=== PATIENT | male | born 1965 | race Caucasian/White ===

== ENCOUNTER 2018-04-19 21:35 | Inpatient (IN) ==
--- NOTE | 2018-04-19 22:27 | Emergency Department Note ---
Disposition Clinical Impression: Chest pain Qualifiers: Chest pain type: precordial pain Qualified Code(s): R07.2 - Precordial pain Disposition: Admitted As Inpatient Condition: Good Referrals: Sea Cuenca MD [Family Provider] - Espinoza Washington MD [Primary Care Provider] - Forms: ED Satisfaction Letter Time of Disposition: 00:14 General Adult HPI - General Chief complaint: ED Chest Pain Stated complaint: Chest Pain Time Seen by Provider: 04/19/18 22:18 Source: patient Mode of arrival: ambulatory Limitations: no limitations - History of Present Illness HPI Narrative: This is a 52-year-old male who comes to emergency department reporting the onset of midsternal chest pain under the superior aspect of his sternum that began about 3 hours prior to arrival. At its worst, he states the pain was much more severe than it is now and he was feeling quite short of breath. He was nauseated and diaphoretic, and vomited once. He states the pain began when he was carrying buckets of linotyper. He has a very strong family history of coronary disease, his older sister, 18 years older than him, having had a heart attack at age 60. Pain Scale: 5 - Related Data Allergies Allergy/AdvReac Type Severity Reaction Status Date / Time lisinopril AdvReac Cough Verified 04/19/18 22:30 All systems ED: reviewed and negative except as stated. Cardiovascular: Reports: chest pain, other (Diaphoresis) Respiratory: Reports: dyspnea Gastrointestinal: Reports: nausea, vomiting Physical Exam - General Limitations: no limitations - Head Head exam: atraumatic, normocephalic, normal inspection - Eye Eye exam: Present: normal appearance, PERRL, EOMI - Chest Chest inspection: Present: normal inspection, symmetric chest wall rise - Respiratory Respiratory exam: Present: normal lung sounds bilaterally. Absent: respiratory distress, wheezes, stridor, accessory muscle use - Cardiovascular Cardiovascular exam: Present: regular rate, normal rhythm, normal heart sounds - Abdominal Exam Abdominal exam: Present: soft, Non-Tender. Absent: tenderness, distention, guarding, rebound, rigidity - Extremities Exam Extremities exam: Present: normal inspection, full ROM. Absent: tenderness, pedal edema - Neurological Exam Neurological exam: Present: alert, oriented X3 - Psychiatric Psychiatric exam: Present: normal affect, normal mood - Skin Skin exam: Present: warm, dry, intact, normal color Course Course Narrative: This is a 52-year-old male with a strong family history of coronary artery disease with a complaint of chest pain. His history of present illness is very concerning and he clearly needs to have a rule out. He was given aspirin, 324 mg Vital Signs Temperature 97.5 F L 04/19/18 21:38 Pulse Rate 72 04/19/18 21:38 Respiratory Rate 16 04/19/18 21:38 Blood Pressure 154/103 04/19/18 21:38 O2 Sat by Pulse Oximetry 99 04/19/18 21:38 Temperature 97.5 F L 04/19/18 22:26 Pulse Rate 56 04/20/18 00:04 Respiratory Rate 16 04/20/18 00:04 Blood Pressure 122/104 04/20/18 00:04 O2 Sat by Pulse Oximetry 97 04/20/18 00:04 Oxygen Delivery Oxygen Delivery Room Air Medical Decision Making - MDM Narrative Medical decision making narrative: This is a 52-year-old male with midsternal chest pain and in history of present illness concerning for possible acute coronary syndrome. His initial EKG was unremarkable, and his initial troponin was barely above the upper limit of normal. I discussed his case with the on-call hospitalist, who accepted him for admission - Lab Data Lab results narrative: CBC showed leukocytosis at 16.2. BMP was unremarkable Troponin was slightly elevated 0.04 Result diagrams: 04/19/18 22:31 04/19/18 22:31 Lab Results 04/19/18 04/19/18 04/19/18 Range/Units 22:31 22:31 22:31 WBC 16.2 H (4.3-11.1) K/mcL RBC 5.50 (4.19-5.50) M/mcL Hgb 16.8 (12.9-16.9) g/dL Hct 50.4 H (37.5-50.1) % MCV 91.6 (83.0-100.0) fL MCH 30.5 (28.0-33.3) pg MCHC 33.3 (31.6-35.5) g/dL RDW 12.7 (11.5-14.5) % Plt Count 314 (140-400) K/mcL MPV 10.1 (9.4-12.4) fL Immature Gran % 0.6 (0-4) % Seg Neutrophils % 80.3 % Lymphocytes % 9.1 % Monocytes % 8.5 % Eosinophils % 0.9 % Basophils % 0.6 % Neutrophils # 13.0 H (1.6-8.9) K/mcL Lymphocytes # 1.5 (0.6-4.6) K/mcL Monocytes # 1.4 H (0.0-1.3) K/mcL Eosinophils # 0.2 (0.0-0.6) K/mcL Basophils # 0.1 (0.0-0.2) K/mcL Toxic Granulation Present A (Not Present) Platelet Estimate Normal (Normal) APTT 28.0 (26.0-36.0) Seconds Sodium 139 (136-145) mEq/L Potassium 4.7 (3.5-5.1) mEq/L Chloride 107 (98-107) mEq/L Carbon Dioxide 25 (23-29) mEq/L BUN 13 (6-20) mg/dL Creatinine 1.01 (0.70-1.30) mg/dL Est GFR ( Amer) > 60 (> 60) Est GFR (Non-Af Amer) > 60 (> 60) BUN/Creatinine Ratio 13 (6-26) Glucose 103 (70-105) mg/dL Calculated Osmolality 288 (280-300) Calcium 10.1 (8.6-10.3) mg/dL Troponin I 0.04 H* (< 0.04) ng/mL - Radiology Data Radiology results reviewed: Yes I reviewed the patient's radiology results. Chest x-ray showed no acute process - EKG Data EKG #1 EKG attestation: Yes I reviewed and interpreted this EKG. EKG results narrative: ECG showed sinus rhythm, 79 bpm,, normal intervals, normal axis, slight ST elevation in lead V2 but no other ST abnormalities, T-wave inversion in lead 3 Critical Care Time Critical Care Time: No
[2018-04-19 22:46] LABS: Basophils # 0.1 K/mcL (0.0-0.2); Basophils % 0.6 %; Eosinophils # 0.2 K/mcL (0.0-0.6); Eosinophils % 0.9 %; Hematocrit 50.4 % (37.5-50.1); Hemoglobin 16.8 g/dL (12.9-16.9); Immature Granulocytes % 0.6 % (0-4); Lymphocytes # 1.5 K/mcL (0.6-4.6); Lymphocytes % 9.1 %; Mean Corpuscular HGB Conc 33.3 g/dL (31.6-35.5); Mean Corpuscular Hemoglobin 30.5 pg (28.0-33.3); Mean Corpuscular Volume 91.6 fL (83.0-100.0); Mean Platelet Volume 10.1 fL (9.4-12.4); Monocytes # 1.4 K/mcL (0.0-1.3); Monocytes % 8.5 %; Platelet Count 314 K/mcL (140-400); Red Cell Distribution Width 12.7 % (11.5-14.5); Segmented Neutrophils % 80.3 %
[2018-04-19 23:01] LABS: BUN/Creatinine Ratio 13 (6-26); Blood Urea Nitrogen 13 mg/dL (6-20); Calcium 10.1 mg/dL (8.6-10.3); Carbon Dioxide 25 mEq/L (23-29); Chloride 107 mEq/L (98-107); Glucose 103 mg/dL (70-105); Osmolality,Calculated 288 (280-300); Potassium 4.7 mEq/L (3.5-5.1); Sodium 139 mEq/L (136-145); eGFR For Non-African Americans > 60 (> 60)
[2018-04-19 23:02] LABS: Platelet Estimate Normal (Normal); Toxic Granulation Present (Not Present)
[2018-04-19 23:05] LABS: Troponin I 0.04 ng/mL (< 0.04)
[2018-04-19] MEDS ORDERED: Aspirin Enteric Coated 325 MG Tablet PO ONE (23:45)
[2018-04-20] MEDS ORDERED: Acetaminophen 325 MG TABLET PO PRN (05:31)
[2018-04-20] MEDS ORDERED: traMADol 50 MG TABLET PO PRN (05:31)
[2018-04-20] MEDS ORDERED: Naloxone 0.4 MG/ML INJ IVP PRN (05:31)
[2018-04-20] MEDS ORDERED: Nitroglycerin 0.4 MG TAB.SUBL SL PRN (05:31)
--- NOTE | 2018-04-20 05:45 | Internal Med History&Physical ---
Date of Encounter: 04/20/18 Time of Encounter: 04:30 Internal Medicine - H&P: HPI Chief complaint: chest pain Admitted From: Emergency Dept Plans for Post Hospital Care: Home History of present illness: Mr. Lange is a 52 year old male who presents to the ER tonight after experiencing substernal chest pain and pressure associated with diaphoresis, nausea, and shortness of breath. He was sealing his driveway when he noticed the chest pain. The chest pain was severe, heavy, and radiated to his left arm. He stopped sealing his driveway and tried to sit down and rest, hoping the pain would go away. However, after 2 hours the pain would not go away. He therefore came to ER for evaluation. By the time he arrived to the ER, he was chest pain-free. He had no further diaphoresis or dyspnea. Workup in ER was negative except for a slightly elevated troponin. He was therefore admitted to hospitalist service. Upon my assessment of the patient, he remains chest pain-free and has no further anginal type symptoms. He reiterates the above history. He has had a few prior episodes of chest pain which were minimal and self-limited. The chest pain he had yesterday/last night was severe and intense. He thought and felt as though he was having a heart attack. Patient reports having a stress test in October of this year at [facility] in [place]. The stress test was reportedly negative. I am trying to obtain results of that stress test. He has no cardiac risk factors other than his family history. However, his family history is rather concerning. His dad of a heart attack at age of 45. He has a sister who has heart disease and a nephew who has coronary artery disease as well. Given that he has had recurrent chest pain with a strong family history of premature coronary artery disease and recent negative stress test, I recommend cardiology consultation and favor left heart catheterization. Patient voiced understanding and agreement with my opinion. Past Med Surg Social Fam HX - Past Medical History Attestation: Yes The following information was validated with the patient. Source: patient, other (ER notes) Medical history: no medical history Psychiatric history: no psych history - Past Surgical History Surgical History: no surgical history - Social History Smoking Status: Never smoker Smokeless Tobacco Status: No Alcohol use: none Drug use: none Current living situation: Home, With Family Activity Level: Independent ambulation Recent Out of Country Travel Within the Last 8 Weeks: No - Family History Father Living Status: Hx Family Cardiac Disorders: Yes ([place]) Sister Living Status: Hx Family Cardiac Disorders: Yes ([place]) - Additional Family History Additional family history: FH Premature CAD -- father of [place] 45 yo; sister w CAD; nephew w CAD Internal Medicine - H&P: Meds No Known Home Drugs 04/20/18 [History] 3 Allergy/AdvReac Type Severity Reaction Status Date / Time lisinopril AdvReac Cough Verified 04/19/18 22:30 - Constitutional Constitutional: no chills, no fever(s) - EENT Eyes: no blurry vision, no change in vision Ears: no ear pain, no tinnitus Nose, mouth and throat: no nasal congestion, no sinus pressure, no sore throat - Cardiovascular Cardiovascular ROS IM: chest pain, diaphoresis, dyspnea, no edema, no orthopnea , no syncope - Respiratory Respiratory: no cough, no hemoptysis, no chest congestion, no excessive phlegm production, no change in phlegm color - Gastrointestinal Gastrointestinal: no abdominal pain, no diarrhea, no dyspepsia, no heartburn, no hematemesis, no hematochezia, no melena, no nausea, no vomiting - Genitourinary Genitourinary ROS male: no dysuria, no flank pain, no hematuria - Musculoskeletal Musculoskeletal ROS IM: no arthralgias, no back pain - Integumentary Integumentary IM: no rash, no jaundice - Neurological Neurological ROS: no dizziness, no focal weakness, no frequent falls, no headache(s) - Psychiatric Psychiatric: no anxiety, no depression - Endocrine Endocrine IM: no polydipsia, no polyuria - Hematologic/Lymphatic Hematologic/Lymphatic: no easy bruising, no lymphadenopathy - Allergic/Immunologic Allergic/Immunologic: no wheezing, no GI upset with certain foods - Constitutional Vitals: Temp Pulse Resp BP Pulse Ox 97.4 F L 55 16 138/98 100 04/20/18 00:39 04/20/18 00:46 04/20/18 00:46 04/20/18 00:46 04/20/18 00:46 General appearance: Present: cooperative, A&O X 3, pleasant, answers questions appropriately Exam: see below - Head Head exam: Present: normal inspection - Eye Eye exam: Present: EOMI, PERRL. Absent: scleral icterus Pupils: Present: normal accommodation - ENT ENT exam: Present: mucous membranes dry, normal exam, normal oropharynx - Neck Neck exam general surgery: Present: full ROM, supple. Absent: tenderness, nuchal rigidity, thyromegaly - Respiratory Respiratory exam: Present: CTAB. Absent: chest wall tenderness, rales, rhonchi , wheezes - Cardiovascular Cardiovascular exam: Present: RRR, +S1, +S2. Absent: diastolic murmur, systolic murmur - GI/Abdominal GI/Abdominal exam: Present: normal bowel sounds, soft. Absent: hepatomegaly, mass, splenomegaly, tenderness - Extremities Exam Extremities exam: Present: normal capillary refill, warm, radial pulses palpable and symmetrical. Absent: calf tenderness, joint swelling, pedal edema , tenderness - Back Exam Back exam: Absent: CVA tenderness (L), CVA tenderness (R) - Neurological Exam Neurological exam: Present: alert, CN II-XII intact, oriented X3, no focal deficits - Psychiatric Psychiatric exam: Present: normal affect, normal mood - Skin Skin exam: Present: dry, intact, warm Internal Med - H&P Results - Labs CBC & Chem 7: 04/19/18 22:31 04/19/18 22:31 - EKG Data -: EKG Interpreted by Myself - EKG Data Prior EKG available for review: no EKG comments: 04/20/18 05:49 NSR; no acute changes - Diagnostic Studies Chest x-ray Status: image reviewed by me (negative) - Assessment and plan (1) Chest pain Current Visit: Yes Status: Acute Assessment and plan: 1. Will trend troponins and EKG's. 2. Will order ECHO. 3. Will order lipid profile. 4. I requested Stress Test results/records from [facility]. 5. Consult cardiology -- patient with strong family history of premature CAD. I recommend [facility] given recurrent chest lucero, reported negative stress test, and +FH. Qualifiers: Chest pain type: chest pain due to myocardial ischemia Ischemic chest pain type: stable angina pectoris Qualified Code(s): I20.8 - Other forms of angina pectoris (2) DVT prophylaxis Current Visit: Yes Status: Acute Assessment and plan: 1. Heparin SQ. - Time Spent With Patient Total time spent is greater than 50% in coordination of care (as documented) at patient's floor/unit and/or counseling patient:
[2018-04-20] MEDS ORDERED: *HR* Heparin 5,000 UNIT/ML VIAL SQ SCH (06:00)
[2018-04-20 07:40] LABS: Basophils # 0.1 K/mcL (0.0-0.2); Basophils % 0.8 %; Eosinophils # 0.2 K/mcL (0.0-0.6); Eosinophils % 2.5 %; Hematocrit 47.2 % (37.5-50.1); Hemoglobin 15.6 g/dL (12.9-16.9); Immature Granulocytes % 0.3 % (0-4); Lymphocytes # 2.5 K/mcL (0.6-4.6); Lymphocytes % 29.1 %; Mean Corpuscular HGB Conc 33.1 g/dL (31.6-35.5); Mean Corpuscular Hemoglobin 30.4 pg (28.0-33.3); Mean Corpuscular Volume 91.8 fL (83.0-100.0); Mean Platelet Volume 9.8 fL (9.4-12.4); Monocytes % 11.1 %; Neutrophils # 4.9 K/mcL (1.6-8.9); Platelet Count 293 K/mcL (140-400); Red Blood Count 5.14 M/mcL (4.19-5.50); Red Cell Distribution Width 12.9 % (11.5-14.5); Segmented Neutrophils % 56.2 %
[2018-04-20 07:48] LABS: Alanine Aminotransferase 28 Units/L (7-52); Albumin 4.3 g/dL (3.5-5.7); Albumin/Globulin Ratio 2.4 (1.1-2.2); Alkaline Phosphatase 82 Units/L (34-104); Aspartate Amino Transferase 22 Units/L (13-39); BUN/Creatinine Ratio 13 (6-26); Bilirubin,Total 1.7 mg/dL (0.3-1.0); Blood Urea Nitrogen 11 mg/dL (6-20); Calcium 9.4 mg/dL (8.6-10.3); Carbon Dioxide 26 mEq/L (23-29); Chloride 107 mEq/L (98-107); Chol/HDL Ratio 5.4 (0-4.9); Cholesterol 204 mg/dL (< 200); Globulin 1.8 g/dL (2.4-3.5); Glucose 93 mg/dL (70-105); HDL Cholesterol 38 mg/dL (40-59); LDL Cholesterol,Calculated 150 mg/dL (0-99); Magnesium 2.1 mg/dL (1.6-2.6); Osmolality,Calculated 287 (280-300); Potassium 3.8 mEq/L (3.5-5.1); Sodium 139 mEq/L (136-145); Total Protein 6.1 g/dL (6.4-8.9); Triglycerides 80 mg/dL (< 150); eGFR For Non-African Americans > 60 (> 60)
[2018-04-20 07:54] LABS: INR 1.1; Prothrombin Time 11.9 Seconds (9.4-12.1)
[2018-04-20 07:56] LABS: Activated Partial Thrombo Time 28.9 Seconds (26.0-36.0)
[2018-04-20] MEDS: Aspirin 81 MG TAB.CHEW PO SCH (07:57)
[2018-04-20] MEDS ORDERED: *HR* Heparin 5,000 UNIT/ML VIAL IVP ONE (09:25)
[2018-04-20] MEDS ORDERED: *HR* Heparin 5,000 UNIT/ML VIAL IVP PRN ×2 (09:25)
[2018-04-20] MEDS ORDERED: Heparin 25,000 UNIT/500 ML D5W 25,000 UNIT/500 ML BAG IVC SCH (09:30)
--- NOTE | 2018-04-20 09:38 | Cardiology Consult Note ---
Date of Encounter: 04/20/18 Time of Encounter: 09:00 Assessment and Plan (1) NSTEMI (non-ST elevated myocardial infarction) Current Visit: Yes Status: Acute Troponin elevation up to 1.02. EKG with no acute ST/T wave changes. C/o intermittent typical chest pain symptoms. Significant family history of CAD. Reports normal stress test 10/2017. [facility] R/B/A reviewed. He agrees to proceed. Check TTE. Start heparin gtt. Asa, statin, and bb. Discussion w patient/family: The assessment and plan as outlined above was discussed with the patient and/or family members who expressed understanding and agreement. All questions were answered. Thank you for involving us in the care of your patient. Please call with any questions. History of Present Illness Consult date: 04/20/18 Requesting physician: Asher Watkins Consult reason: chest pain, NSTEMI Chief complaint: chest pain with exertion History of present illness: Mr. Lange is a 52 year old male with no significant past medical history presents with the c/o intermittent chest pain and SOB with exertion. Reports chest pain increased last night and was severe. His pain lasted 45 min and was relieved after taking an asa. He is currently chest pain free. Denies prior cardiac history. Reports stress test completed for chest pain in October at an out -side hospital was negative. He has a significant family history of CAD including father with [place] at 45 years old and sister with [place] in her 50's. Past Med Surg Social Fam HX - Past Medical History Medical history: no medical history Psychiatric history: no psych history - Past Surgical History Surgical History: no surgical history - Social History Smoking Status: Never smoker Smokeless Tobacco Status: No Alcohol use: none Drug use: none - Family History Father Living Status: Hx Family Cardiac Disorders: Yes ([place]) Sister Living Status: Hx Family Cardiac Disorders: Yes ([place]) Medications and Allergies No Known Home Drugs 04/20/18 [History] 3 Allergy/AdvReac Type Severity Reaction Status Date / Time lisinopril AdvReac Cough Verified 04/19/18 22:30 All Systems Review: The remainder of the systems were reviewed and are negative Physical Examination Vital Signs, Last 4 Hours Temp Pulse Resp BP Pulse Ox 04/20/18 07:55 96 04/20/18 07:43 98.1 F 57 17 111/74 96 General: Conversant, No Apparent Distress HEENT: Atraumatic, Normocephaly, Mucus Membranes Moist Neck: No JVD, Normal carotid pulses Cardiac: Reg Rate and Rhythm, Normal S1 and S2, No Murmur Lungs: Normal Breath Sounds, No Wheeze, Rales, Rhonchi Neuro: Alert and responsive, No focal deficits noted Abdomen: Soft, Non-Tender Skin: No rashes noted on visualized skin Musculoskeletal: No Chest Wall Tenderness Extremities: No Clubbing, No Cyanosis, No Edema, Normal Pulses Results 04/20/18 06:42 04/20/18 06:42 Lab Results 04/20/18 04/20/18 04/20/18 06:42 06:42 06:42 WBC 8.7 Hgb 15.6 Hct 47.2 Plt Count 293 INR 1.1 APTT 28.9 Sodium 139 Potassium 3.8 Chloride 107 Carbon Dioxide 26 BUN 11 Creatinine 0.83 Glucose 93 Calcium 9.4 Magnesium 2.1 Total Bilirubin 1.7 H AST 22 ALT 28 Alkaline Phosphatase 82 Troponin I 04/20/18 06:42 WBC Hgb Hct Plt Count INR APTT Sodium Potassium Chloride Carbon Dioxide BUN Creatinine Glucose Calcium Magnesium Total Bilirubin AST ALT Alkaline Phosphatase Troponin I 1.02 H* - EKG Interpretation EKG results cardiology: personally reviewed (SR with no acute ST changes.) Consult Discharge Plan - Plan Referrals: Espinoza Washington MD [Primary Care Provider] -
[2018-04-20 10:22] LABS: Hematocrit 47.3 % (37.5-50.1); Hemoglobin 15.7 g/dL (12.9-16.9); Mean Corpuscular HGB Conc 33.2 g/dL (31.6-35.5); Mean Corpuscular Hemoglobin 30.5 pg (28.0-33.3); Mean Corpuscular Volume 91.8 fL (83.0-100.0); Mean Platelet Volume 9.5 fL (9.4-12.4); Platelet Count 309 K/mcL (140-400); Red Blood Count 5.15 M/mcL (4.19-5.50); Red Cell Distribution Width 12.9 % (11.5-14.5)
[2018-04-20 10:29] LABS: INR 1.1
[2018-04-20] MEDS ORDERED: 0.9 % Sodium Chloride 500 ML ONE (10:42)
[2018-04-20 10:45] LABS: Heparin anti-factor XA UFH 0.06 IU/mL (0.30-0.70)
[2018-04-20] MEDS ORDERED: Verapamil 5 MG/2 ML VIAL ONE (13:47)
[2018-04-20] MEDS ORDERED: ISOVUE-370 200 ML INFUS..BTL IV ONE ×2 (13:47→15:11)
[2018-04-20] MEDS ORDERED: *HR* Heparin 10,000 UNIT/10 ML VIAL ONE (13:47)
[2018-04-20] MEDS ORDERED: Heparin 1,000 UNITS/500 mL 500 ML ONE (13:47)
[2018-04-20] MEDS ORDERED: Nitroglycerin 1,000 MCG/10 ML VIAL IV ONE (13:48)
[2018-04-20] MEDS ORDERED: 0.9 % Sodium Chloride 1,000 ML ONE ×2 (13:48→14:21)
[2018-04-20] MEDS ORDERED: *HR* FentaNYL (PF) 100 MCG/2 ML VIAL ONE (14:26)
[2018-04-20] MEDS ORDERED: *HR* Midazolam HCl 2 MG/2 ML VIAL ONE ×2 (14:26→14:37)
--- NOTE | 2018-04-20 14:41 | Pre-Sedation Evaluation ---
Pre-sedation evaluation - Pre-sedation checklist Date of procedure: 04/20/18 Procedure: heart cath Recent Vitals: Last Vital Signs Temp 98.5 F 04/20/18 12:00 Pulse 54 04/20/18 12:00 Resp 19 04/20/18 12:00 BP 117/77 04/20/18 12:00 Pulse Ox 97 04/20/18 12:00 H&P (including ROS) documented in medical record: Yes Previous reaction to sedatives/anesthetics: No Dietary Status: NPO after Midnight Dentition: No loose teeth or bridges, full dentition ASA Classification *see protocol: CLASS II-Mild systemic disease Plan of Care: Pt appropriate candidate for procedure/moderate/conscious sedation , Risks/benefits of procedure/sedation discussed w/ patient/family Cardiac Registry (Cardio Only) - Functional Capacity Functional Capacity: >=4 METS with symptoms - Clincal Frailty Scale Clinical Frailty Scale: Managing Well
--- NOTE | 2018-04-20 14:55 | Event Note ---
Date of Encounter: 04/20/18 Time of Encounter: 14:50 Patient was seen earlier by nocturnal. He was seen and examined at bedside by myself as well. In summary this is a 52-year-old male with no significant past medical history presented to [facility] with complaints of chest pain. Chest pain resolved prior to arrival to ED. EKG without acute ST changes. Serial troponin 0.04, 1.02, 1.17. He was evaluated by cardiology who recommended C area and heparin drip started. TTE pending
[2018-04-20] MEDS ORDERED: Tirofiban 12.5 MG/250ML 12.5 MG/250 ML BAG ONE (15:06)
[2018-04-20] MEDS ORDERED: *HR* Ticagrelor 90 MG TABLET ONE (15:17)
--- NOTE | 2018-04-20 15:38 | Invasive Diagnostic Lab Proc ---
Name: Rob Lange Date of Study: 04/20/2018 Date: 1965 Ht: 70.0in Medical Record#: [id number] Age: 52 Wt: 187.83lb Gender: Male BSA: 2.03 Order #: [id number] BMI: 26.95 Physicians Procedure Physician: Lul Gomez MD, [facility] Referring MD: Referring MD: Staff Name Position Time In Chhaya Hurtado RT (R) Monitor 02:32 PM Constantin Higgins RN Care Management Specialist 02:32 PM Sherly Eli RT Scrub 02:32 PM Indications Indication Non-Stemi Procedures Performed Procedure L HRT ARTERY/VENTRICLE ANGIO PRQ CARD RACHELLE STENT W/ANGIO 1 VSL Pre-Procedure Checklist Informed consent is complete signed and on chart. H&P is on chart. ID band is on and ID verified with patient. Patient NPO for procedure The procedure was described for the patient and questions were answered. ECG is on chart. Plan of Care Patient will tolerate the procedure without complications. Adequate level of comfort will be maintained. Hemodynamics will remain stable Patient will recover from procedure without complications. Respiratory function will be maintained. Cardiac rhythm will remain stable. Patient temperature will be maintained. Patient and/or family have verbalized understanding of the procedure. Patient Education Chief Complaint/Reason for Test: Cardiac Cath Developmental Category: Adult (18-64 years) Developmentally Appropriate for Age: Yes Learning Barriers: None Education Needs: Procedure Education Method: Verbal Information Taught: Cardiac Cath Educational Evaluation: Able to repeat information Intravenous Access Time IV Size Location DC'd Fluid/Drip Rate Units RN 02:28 PM Started with 20g 1 1/4" Rt Antecubital 0.9NaCl 25 ml/hr Constantin Higgins RN Allergies lisinopril Vital Signs Time BP (mmHg) HR (bpm) O2 Sat. RR (bpm) LOC / % 5 = Fully awake and oriented or at pre-proc level 02:33 PM / % 5 = Fully awake and oriented or at pre-proc level 02:33 PM / % 4 = Oriented but drowsy 02:48 PM / % 4 = Oriented but drowsy 03:03 PM / % 4 = Oriented but drowsy 02:31 PM 132 / 68 52 100 % 7 02:36 PM 114 / 73 55 98 % 13 02:41 PM 116 / 74 54 97 % 11 02:46 PM 111 / 72 51 98 % 12 02:51 PM 109 / 70 52 98 % 12 02:56 PM 103 / 69 57 97 % 15 03:01 PM 104 / 63 65 96 % 13 03:06 PM 100 / 65 57 97 % 12 03:11 PM 117 / 76 55 97 % 10 03:16 PM 119 / 72 53 97 % 13 03:21 PM 130 / 74 % Procedural Medications Time Medication Dose Units Method Given By 02:33 PM Oxygen 2 L/min nasal cannula Constantin Higgins RN 02:33 PM Versed 2 mg Intravenous Constantin Higgins RN 02:33 PM Fentanyl 50 mcg Intravenous Constantin Higgins RN 02:55 PM Lidocaine 2% 0.5 ml Subcutaneous Lul Gomez MD, FACC 02:56 PM Heparin 2000 units Nitroglycerin 200 mcg Verapamil 2.5 mg Intraarterial Lul Gomez MD, FACC 03:03 PM Versed 1 mg Intravenous Constantin Higgins RN 03:04 PM Fentanyl 25 mcg Intravenous Constantin Higgins RN 03:10 PM Aggrastat Bolus: 42 ml Intravenous Constantin Higgins RN 03:10 PM Aggrastat 12.5mg/250ml 15 ml Intravenous Constantin Higgins RN 03:17 PM Brilinta 180 mg Orally Constantin Higgins RN ASA Classification: CLASS II- Mild systemic disease (i.e. well-controlled diabetes, hypertension, asthma, cigarette smoking) Nilsa Score Preprocedure Postprocedure Activity 2- Moves 4 extremities sustained head lift Activity 2- Moves 4 extremities sustained head lift Circulation 2- SBP +/= 20 points of pre-anesthetic level Circulation 2- SBP +/= 20 points of pre-anesthetic level Consciousness 2- Awake and alert oriented x 3 Consciousness 2- Awake and alert oriented x 3 O2 Saturation 2- Able to maintain O2 satruation of 92% on room air O2 Saturation 2- Able to maintain O2 satruation of 92% on room air Respiratory 2- Able to deep breathe and cough well Respiratory 2- Able to deep breathe and cough well Total Score 10 Total Score 10 Contrast Agent: Isovue Diagnostic Contrast: 100 ml Total Contrast: 100 ml Fluoro Dose: 27 mGy Activated Clotting Time Time Seconds to Clot 03:12 PM 306 Procedure Log Time Note Enter By 02:28 PM Pt arrived to technical laboratory asst 1 at 14:28 twilson 02:28 PM Patient charges- Angio tray pack, Navilyst 3mm J, Pulse Oximetry and ACIST tubing and transducer twilson : PM Physician arrived 14: twilson : PM Meet and greet completed : PM Sign in performed according to hospital policy. twilson : PM Procedure start 14: twilson : PM CathStat : PM [ Start or Stop Vital ] 02:30 PM Vitals capture started with the following parameters, Patient=Adult, Interval=5 min, Initial Crazonhn=379 mmHg, Deflation Rate=3 mmHg, Cuff placed on Right Arm 02: PM HR=52 bpm, FUAS=876/68 mmhg, GrS4=492.0 %, Resp=7 B/min 02:31 PM Recorded ECG: HR=54 Condition=Condition 1 02:32 PM Chhaya Hurtado RT (R) Position: Monitor Time in: : tw:32 PM Constantin Higgins RN Position: Care Management Specialist Time in: : twilson :32 PM Sherly Eli RT Position: Scrub Time in: : twilson :32 PM Patient charges- Angio tray pack, Navilyst 3mm J, Pulse Oximetry and ACIST tubing and transducer twilson : PM Case Delayed no twilson : PM Hair removed from procedure site in procedure lab using clippers. Right wrist prepped with Chloraprep by Jia Lomas RT (R), then patient was draped. Skin intact. tw: PM Hair removed from procedure site in procedure lab using clippers. Right groin prepped with Chloraprep by Jia Lomas RT (R), then patient was draped. Skin intact. : PM Time: 14:33 Oxygen on at 2 L/min per nasal cannula by Constantin Higgins RN : PM Time: 14:33 Versed 2 mg Intravenous Given by Constantin Higgins RN PM Time: 14:33 Fentanyl 50 mcg Intravenous Given by Constantin Higgins RN : PM Time: 14:33 Patient comfortable and pain free: Yes : PM Time: 14:33LOC: 5 = Fully awake and oriented or at pre-proc level twilson 02:36 PM HR=55 bpm, MIBX=906/73 mmhg, SpO2=98.0 %, Resp=13 B/min 02:41 PM HR=54 bpm, VJNZ=437/74 mmhg, SpO2=97.0 %, Resp=11 B/min 02:44 PM ASA Class CLASS II- Mild systemic disease (i.e. well-controlled diabetes, hypertension, asthma, cigarette smoking) twilson 02:46 PM HR=51 bpm, DNWW=221/72 mmhg, SpO2=98.0 %, Resp=12 B/min 02:48 PM Time: 14:33 Patient comfortable and pain free: Yes twilson 02:48 PM Time: 14:33LOC: 4 = Oriented but drowsy twilson 02:51 PM HR=52 bpm, AWWJ=014/70 mmhg, SpO2=98.0 %, Resp=12 B/min 02:54 PM Time out performed according to hospital policy tw:56 PM Time: 14:55 0.5 ml Lidocaine 2% to right radial Subcutaneous Given by Lul Gomez MD, [facility] twilson 02:56 PM Access obtained by percutaneous puncture. 5Fr 10cm Terumo Glidesheath sheath placed in right Radial artery. [id number] twilson 02:56 PM Time: 14:56 Patient given 2,000 units Heparin, 200 mcg Nitroglycerin, and 2.5 mg Verapamil Intraarterial by Lul Gomez MD, [facility]. This is given to reduce risk of vessel spasm and thrombosis. tw 02:56 PM HR=57 bpm, KLBC=078/69 mmhg, SpO2=97.0 %, Resp=15 B/min 02:58 PM 5Fr TIG catheter inserted over the wire [facility] tw:58 PM Wire removed tw 02:59 PM Catheter selectively placed in left ventricle twilson 02:59 PM Recorded Pressure: LV, HR=63, Condition=Condition 1 (Left Ventricle) LV 94/8/9 02:59 PM Bolus angiogram of left Ventricle complete: 10 ml/sec for a total of 20 mls twilson 03:00 PM Recorded Pressure: LV, Ao, HR=60, Condition=Condition 1 (Left Ventricle) LV 104/1/8, (Aorta) Ao 96/68/81 03:01 PM RCA angiography performed in multiple views. twilson 03:01 PM Recorded Pressure: Ao, HR=59, Condition=Condition 1 (Aorta) Ao 99/75/87 03:01 PM HR=65 bpm, ZJCN=161/63 mmhg, SpO2=96.0 %, Resp=13 B/min 03:01 PM Wire reinserted. twilson 03:02 PM Catheter removed twilson 03:02 PM Lesion found in Mid RCA. Pre Stenosis: 50 Pre JA Flow: twilson 03:02 PM Lesion found in Distal RCA. Pre Stenosis: 40 Pre JA Flow: twilson 03:02 PM Right Coronary, Right Posterior Descending Arteries with Right Posterolateral and Acute Marginal branches with 50 % stenosis. If graft is supplying this area, 0 % stenosis twilson 03:03 PM 6Fr RBL 3.5 Convey guide catheter was used to cannulate the PCI vessel successfully. reused? No twilson 03:03 PM Time: 14:48LOC: 4 = Oriented but drowsy twilson 03:03 PM Time: 14:48 Patient comfortable and pain free: Yes twilson 03:03 PM Wire removed twilson 03:04 PM Time: 15:03 Versed 1 mg Intravenous [facility] 03:04 PM Time: 15:04 Fentanyl 25 mcg Intravenous Given by Constantin Higgins RN twilson 03:04 PM LCA angiography performed in multiple views. twilson 03:04 PM Recorded Pressure: Ao, HR=53, Condition=Condition 1 (Aorta) Ao 99/65/80 03:05 PM Recorded Pressure: Ao, HR=57, Condition=Condition 1 (Aorta) Ao 105/68/85 03:05 PM Recorded Pressure: Ao, HR=59, Condition=Condition 1 (Aorta) Ao 99/64/81 03:06 PM HR=57 bpm, BEGF=217/65 mmhg, SpO2=97.0 %, Resp=12 B/min 03:06 PM Lesion found in Mid LAD. Pre Stenosis: 95 Pre JA Flow: 3: Complete and Brisk Flow/Perfusion twilson 03:07 PM Drawing an ACT twilson 03:07 PM Coronary Dominance: right twilson 03:07 PM Mid/Distal Left Anterior Descending Coronary Artery and diagonal branches with 95% stenosis. If graft is supplying this area, 0 % stenosis twilson 03:07 PM Inflation device was opened. twilson 03:08 PM PCI lesion in Mid LAD. twilson 03:08 PM PCI Status Urgent twilson 03:08 PM .014 Jewell 190cm guide wire across target lesion- successful. reused? No twilson 03:10 PM 2.5 mm x 12 mm Emerge Monorail balloon across target lesion- successful. reused? No twilson 03:10 PM Time: 15:10 Aggrastat Bolus: 42 ml Intravenous Given by Constantin Higgins RN Simmons pump twilson 03:10 PM Balloon inflated @ 14 louise for 12 seconds twilson 03:11 PM Time: 15:10 Aggrastat 12.5mg/250ml 15 ml Intravenous Given by Constantin Higgins RN Simmons pump twilson 03:11 PM Recorded Pressure: Ao, HR=54, Condition=Condition 1 (Aorta) Ao 129/79/99 03:11 PM HR=55 bpm, SCBJ=795/76 mmhg, SpO2=97.0 %, Resp=10 B/min 03:12 PM At 15:12 the ACT was 306 seconds. twilson 03:13 PM 3.5mm x 16mm Promus Premier Rx drug-eluting stent across target lesion- successful Lot #[id number] twilson 03:13 PM Stent deployed @ 11 louise for 10 seconds twilson 03:13 PM Stent balloon reinflated @ 11 louise for 10 seconds twilson 03:15 PM Guide wire removed intact. twilson 03:15 PM Stent delivery system removed intact. twilson 03:15 PM Wire reinserted. twilson 03:15 PM Wire and catheter removed, intact. twilson 03:16 PM Procedure completed at 15:16 04/20/2018 twilson 03:16 PM Lesion found in 1st Diagonal. Pre Stenosis: 80 Pre JA Flow: twilson 03:16 PM HR=53 bpm, ICIW=538/72 mmhg, SpO2=97.0 %, Resp=13 B/min 03:17 PM Time: 15:17 Brilinta 180 mg Orally Given by Constantin Higgins RN twilson 03:18 PM Did you address JA flow and Dominance? Yes twilson 03:18 PM Sign out completed: Radiation Dose 215.62 mGy, 27.0467 Gy/cm2 Fluoro Time: 5.3 Isovue 370 - 200ml contrast 100 ml given by Lul Gomez MD, FACC. Complications: NoneCardiac Rehab Consult needed: YesConfirmed administered medications: Yes twilson 03:19 PM Time: 15:03LOC: 4 = Oriented but drowsy twilson 03:19 PM Time: 15:03 Patient comfortable and pain free: Yes twilson 03:19 PM Isovue 370 - 200ml,1 Bottle(s) used. twilson 03:19 PM Arterial sheath pulled, Vasc Band closure device used and was Successful S/N. twilson 03:19 PM 13 ml air in Vasc Band. twilson 03:19 PM Estimated Blood Loss: minimal twilson 03:19 PM Post ECG NSR twilson 03:19 PM Post Blood Pressure 119/72 twilson 03:20 PM 15:20 Post Pulses Bilateral DP & PT 2+ twilson 03:20 PM 15:20 Post Pulses Bilateral radial 2+ twilson 03:20 PM Information taught Cardiac Cath, PCI, and Vasc Band twilson 03:21 PM Education needs Procedure, Plan of Care, and Responsibilities of Patient in Care twilson 03:21 PM Learning barriers :None twilson 03:21 PM Education Methods Verbal twilson 03:21 PM Education evaluation Able to repeat information twilson 03:21 PM Site status No bleeding/hematoma - Rt Wrist as reported by Sherly Eli RT at 15:21 twilson 03:21 PM Family placed in consult room. twilson 03:21 PM KVWL=003/74 mmhg 03:23 PM Plavix, Effient or Brilinta given Yes twilson 03:27 PM Report given to Kathleen TIWARI Pt taken to 3B Room #32. 15:27 twilson 03:27 PM Delay to floor No twilson 03:27 PM Patient out of room: 15:27 twilson Complications Complication None Hemodynamics Pressures Site Systolic/A Wave Diastolic/V Wave Mean LV 94 8 9 LV 104 1 8 AO 96 68 81 AO 99 75 87 AO 99 65 80 AO 105 68 85 AO 99 64 81 AO 129 79 99 Post Procedure Information Blood Pressure: 119/72 mmHg Rhythm: NSR Post procedural instructions were given Closure Device Time Device Success/Fail 04/20/2018 3:15:00 PM Mechanical Compression Successful Site Checks Time Location Status Staff Sheath In? Note 03:21 PM Rt Wrist No bleeding/hematoma Sherly Eli RT Pulses Time Site Pre-Procedure Post-Procedure Note 04/20/2018 2:28:00 PM Bilateral DP & PT 2+ 04/20/2018 2:28:00 PM Bilateral radial 2+ 3:20:00 PM Bilateral DP & PT 2+ 3:20:00 PM Bilateral radial 2+ Updated by ChhayaRT Denise (R) on 04/20/2018 3:29:47 PM electronically signed on 04/20/2018 3:30:29 PM with status of Final
[2018-04-21 04:32] LABS: Hematocrit 42.9 % (37.5-50.1); Hemoglobin 13.9 g/dL (12.9-16.9); Mean Corpuscular HGB Conc 32.4 g/dL (31.6-35.5); Mean Corpuscular Volume 92.5 fL (83.0-100.0); Mean Platelet Volume 9.7 fL (9.4-12.4); Platelet Count 301 K/mcL (140-400); Red Blood Count 4.64 M/mcL (4.19-5.50); Red Cell Distribution Width 13.2 % (11.5-14.5)
[2018-04-21 04:48] LABS: BUN/Creatinine Ratio 12 (6-26); Blood Urea Nitrogen 13 mg/dL (6-20); Calcium 9.3 mg/dL (8.6-10.3); Carbon Dioxide 27 mEq/L (23-29); Chloride 105 mEq/L (98-107); Glucose 101 mg/dL (70-105); Osmolality,Calculated 290 (280-300); Potassium 4.1 mEq/L (3.5-5.1); Sodium 140 mEq/L (136-145); eGFR For Non-African Americans > 60 (> 60)
[2018-04-21 08:05] VITALS: BP 103/69
--- NOTE | 2018-04-21 08:30 | Discharge Summary ---
<Sergey Petty - Last Filed: 04/21/18 08:58> Orders not resulted at time of discharge: Pending orders 04/21/18 03:07 [place] 39904/22/18 04:00 BMP [Basic Metabolic Panel] AM 0400 Complete Blood Count w/o Diff [HEME] AM 04004/23/18 04:00 BMP [Basic Metabolic Panel] AM 0400 Complete Blood Count w/o Diff [HEME] AM 04004/24/18 04:00 BMP [Basic Metabolic Panel] AM 0400 Complete Blood Count w/o Diff [HEME] AM 04004/25/18 04:00 BMP [Basic Metabolic Panel] AM 0400 Complete Blood Count w/o Diff [HEME] AM 0400 Date of Encounter: 04/21/18 Time of Encounter: 08:28 - Discharge Diagnosis (1) Chest pain Priority: Secondary Status: Acute Qualifiers: Chest pain type: chest pain due to myocardial ischemia Ischemic chest pain type: stable angina pectoris Qualified Code(s): I20.8 - Other forms of angina pectoris (2) DVT prophylaxis Priority: Secondary Status: Acute (3) NSTEMI (non-ST elevated myocardial infarction) Priority: Primary Status: Acute Hospital course: Mr. Lange is a 52 year old male with no significant past medical history who arrived to [facility] on 04/20/18 with chief complaint of typical chest pain. Patient was found to have elevated troponin's upon arrival with ST changes. He was admitted for further workup and management of NSTEMI. Patient does have significant family history of heart disease. He had echocardiogram done on that showed LVEF 65%, normal LV chamber size, wall thickness, function, normal RV structure and function, no valvular dysfunction. Patient was evaluated by cardiology, who recommended [facility], that was done on 04/20/18. Patient had RACHELLE placed to mLAD with mild to moderate non obstructive disease remaining. Patient tolerated the procedure well without any complications. He was discharged home in stable condition. Discharge discussed with: patient - Time Spent with Patient Total time spent providing and/or coordinating discharge services: Less than 30 minutes - Discharge Medications Prescriptions: Nitroglycerin 0.4 mg SL Q5MIN PRN #30 tab.subl PRN Reason: Chest Pain Aspirin 81 mg PO DAILY #30 tab.chew Atorvastatin [Lipitor] 80 mg PO HS #60 tablet Metoprolol [Lopressor] 12.5 mg PO BID #60 tablet Ticagrelor [Brilinta] 90 mg PO BID #60 tablet Home Medications: Aspirin 81 mg PO DAILY #30 tab.chew 04/21/18 [Rx] Atorvastatin [Lipitor] 80 mg PO HS #60 tablet 04/21/18 [Rx] Metoprolol [Lopressor] 12.5 mg PO BID #60 tablet 04/21/18 [Rx] Nitroglycerin 0.4 mg SL Q5MIN PRN #30 tab.subl 04/21/18 [Rx] Ticagrelor [Brilinta] 90 mg PO BID #60 tablet 04/21/18 [Rx] Allergies/Adverse Reactions: 3 Allergy/AdvReac Type Severity Reaction Status Date / Time lisinopril AdvReac Cough Verified 04/19/18 22:30 Date of admission: 04/20/18 14:48 Primary care physician: Espinoza Washington MD Discharging clinician: Sergey Petty Anticipated date of discharge: 04/21/18 - Constitutional Vitals: Temp Pulse Resp BP Pulse Ox 98.3 F 58 18 103/69 96 04/21/18 08:04 04/21/18 08:04 04/21/18 08:04 04/21/18 08:04 04/21/18 08:04 General appearance: Present: cooperative, A&O X 3, pleasant, answers questions appropriately Exam: in no acute distress - Head Head exam: Present: atraumatic, normocephalic - ENT ENT exam: Present: mucous membranes moist - Respiratory Respiratory exam: Present: CTAB. Absent: rales, wheezes - Cardiovascular Cardiovascular exam: Present: RRR, +S1, +S2 - GI/Abdominal GI/Abdominal exam: Present: normal bowel sounds, soft. Absent: distended, tenderness - Extremities Exam Extremities exam: Absent: cyanotic, pedal edema - Neurological Exam Neurological exam: Present: alert, oriented X3, no focal deficits - Psychiatric Psychiatric exam: Present: normal affect, normal mood - Skin Skin exam: Present: intact - Patient Status Disposition: Home, Self-Care Condition: Good Functional capacity at discharge: independent ambulation Overall status at discharge: patient is back to baseline - Discharge Instructions Instructions: Metoprolol (By mouth), Nitroglycerin (By mouth), Aspirin (By mouth), Atorvastatin (By mouth), Ticagrelor (By mouth) Follow Up With: Prashanth Owusu CNP [Advanced Practice Nurse] - (The office will call you with a follow up appt. If they do not call you please call them at [phone]) Espinoza Washington MD [Primary Care Provider] - (PLease call to make a follow up appt for 7-10 days.) Additional Instructions: Follow-up with your primary care provider within one week of discharge. Cardiac rehab activity restrictions per cardiology follow-up with cardiology. Please take all medications as prescribed. Return to the emergency department immediately if symptoms recur. RISK FACTORS: STOP SMOKING: If you smoke, STOP. Smoking or tobacco use significantly increases your risk of heart disease because nicotine causes the arteries to narrow or constrict. It also causes fats to stick to the artery. Your chances of having a heart attack are greatly increased if you continue to smoke. For more information, call the education line for smoking cessation 6-909-UMQYCVX EAT A LOW FAT/CHOLESTEROL/SODIUM DIET: This diet may help reduce your chances of having a heart attack. LIFTING: With affected extremity: Avoid bending, pushing off and lifting more than 2 pounds for 24 hours The following 48 hours, avoid lifting anything more than 5 pounds Avoid strenuous activity or repetitive motions ACTIVITY: You may walk or climb stairs as tolerated You can resume sexual activity as tolerated In general, you are encouraged to engage in a minimum of 30 minutes or more of moderate intensity physical activity, such as brisk walking, daily or at least 3 -4 times weekly BATHING Do not submerge the site into water (bath tub, hot tub, swimming pool, dishes) for 1 week. This can be a source for infection into the blood stream. You may shower after 24 hours SITE CARE: After 24 hours, you may remove the dressing and leave the site open to air. Keep the site clean and dry. Clean gently and pat dry. You can expect bruising and tenderness that gradually resolve within a week or two. Return to work as instructed per your physician Resume driving as instructed per physician Keep all scheduled follow up appointments Resume medications as instructed IMPORTANT: If prescribed a Platelet Aggregation Inhibitor such as, Plavix, Brilinta or Effient: Duration of therapy is minimum one year These medications are often used in combination with Aspirin in prevention of future heart attacks Never discontinue unless consult with your Paraprofessional Aide Teacher STROKE (CVA) Risk factors for a stroke are: Age, cigarette smoking, diabetes, excessive alcohol consumption, family history, high blood pressure, overweight, physical inactivity, prior stroke, heart attack, diagnosis of carotid artery stenosis or other artery disease. Warning signs: Sudden numbness or weakness of the face, arm or leg; especially on one side of the body, sudden confusion, trouble speaking or understanding, sudden trouble seeing in one or both eyes, sudden trouble walking, dizziness, loss of balance or coordination, sudden severe headache with no cause. Call 911 or go to the Emergency Room. CONGESTIVE HEART FAILURE: If you have been diagnosed with Congestive Heart Failure (CHF) and your symptoms return, make an appointment with your physician Weigh yourself daily. Notify your physician if you have a weight gain of two or more pounds in one day or five or more pounds in one week. If you experience any difficulty breathing, please call 911 BLEEDING: Although the risk of bleeding is minimal, it can happen. If you have any bleeding from the site, apply firm pressure above the puncture site for 10-15 minutes. If the bleeding does not stop, continue manual pressure and call 911 Contact [facility] ( ) if: You develop a fever greater than 101 degrees Fahrenheit Your site becomes reddened or has any drainage You have an increase in pain or burning at the site or if a large knot forms at the site. If you experience chest pain, shortness of breath, dizziness, or extreme tiredness, stop the activity and rest. Please notify [facility] office if you experience any of these symptoms and they are not relieved by rest please call 911! - Diet and Activity Activity: increase activity as tolerated Diet: low fat, low cholesterol, low salt diet <Tulio Rodas - Last Filed: 04/21/18 13:35> Date of Encounter: 04/21/18 - Discharge Diagnosis (1) Chest pain Status: Acute Qualifiers: Chest pain type: chest pain due to myocardial ischemia Ischemic chest pain type: stable angina pectoris Qualified Code(s): I20.8 - Other forms of angina pectoris (2) DVT prophylaxis Status: Acute (3) NSTEMI (non-ST elevated myocardial infarction) Status: Acute Hospital course: Mr. Lange is a 52 year old male - Time Spent with Patient Total time spent providing and/or coordinating discharge services: Date of admission: 04/20/18 14:48 Primary care physician: Espinoza Washington MD - Constitutional Vitals: Temp Pulse Resp BP Pulse Ox 98.3 F 58 18 103/69 96 04/21/18 08:04 04/21/18 08:04 04/21/18 08:04 04/21/18 08:04 04/21/18 08:04 - Attending Attestation I examined this patient and my medical decision-making was reviewed with the Resident Physician Dr. Petty. I agree with the documented findings, disposition and treatment plan as described except to the extent set forth below. Mr. Lange is a 52 year old male with no significant past medical history who arrived to [facility] on 04/20/18 with chief complaint of typical chest pain. Patient was found to have elevated troponin's upon arrival with ST changes. He was admitted for further workup and management of NSTEMI. He was started on Heparin gtt since his trop started trending up. He was evaluated by Card , who did LHC and had PCI of mLAD. He was started on ASA + Brilinta, BB and statin. Pt is chest pain free now, medically stable to d/c home today. BY the time I went to see the pt he left, so I called him on his home ph @ [phone], answered all his questions.
[2018-04-21 08:38] LABS: Estimated Average Glucose 97 mg/dl
--- NOTE | 2018-04-21 08:51 | Cardiology Progress Note ---
Date of Encounter: 04/21/18 Time of Encounter: 08:47 Assessment and Plan (1) NSTEMI (non-ST elevated myocardial infarction) Current Visit: Yes Status: Acute Troponin elevation up to 1.02. EKG with no acute ST/T wave changes. C/o intermittent typical chest pain symptoms. Significant family history of CAD. [facility] completed and he received ARCHELLE to the mLAD. Mild to moderate non-obstructive disease remaining. TTE shows EF 65%, no significant valvular disease. There was no complication from the procedure. Denies recurrent chest pain. No complications from right radial access site. Importance of DAPT with asa and brilinta uninterrupted for minimum of one year discussed and he voiced understanding. Continue statin and BB. Activity restrictions reviewed as stated above.Cardiac rehab ordered. Cardiology will sign off. Out-pt f/u will be coordinated by [facility]. Discussion w patient/family: The assessment and plan as outlined above was discussed with the patient and/or family members who expressed understanding and agreement. All questions were answered. Thank you for involving us in the care of your patient. Please call with any questions. Subjective Principal diagnosis: NSTEMI Interval history: No new complaints. Resting quietly in bed. Objective Vital Signs, Last 4 Hours Temp Pulse Resp BP Pulse Ox 04/21/18 08:04 98.3 F 58 18 103/69 96 General: Conversant, No Apparent Distress HEENT: Atraumatic, Normocephaly, Mucus Membranes Moist Neck: No JVD, Normal carotid pulses Cardiac: Reg Rate and Rhythm, Normal S1 and S2, No Murmur Lungs: Normal Breath Sounds, No Wheeze, Rales, Rhonchi Neuro: Alert and responsive, No focal deficits noted Abdomen: Soft, Non-Tender Skin: No rashes noted on visualized skin Musculoskeletal: No Chest Wall Tenderness Extremities: No Clubbing, No Cyanosis, No Edema, Normal Pulses, Other (Right radial access without hematoma or redness. ) Results 04/21/18 03:07 04/21/18 03:07 Lab Results 04/20/18 04/21/18 04/21/18 18:19 03:07 03:07 WBC 8.5 Hgb 13.9 D Hct 42.9 Plt Count 301 Sodium 140 Potassium 4.1 Chloride 105 Carbon Dioxide 27 BUN 13 Creatinine 1.05 Glucose 101 Calcium 9.3 Troponin I 1.10 H* - Imaging and Cardiology Echo: report reviewed Cardiac cath: report reviewed - EKG Interpretation EKG results cardiology: personally reviewed Consult Discharge Plan - Plan Additional Instructions: Follow-up with your primary care provider within one week of discharge. Cardiac rehab follow-up with cardiology. Please take all medications as prescribed. Return to the emergency department immediately if symptoms recur. Referrals: Prashanth Owusu CNP [Advanced Practice Nurse] - Espinoza Washington MD [Primary Care Provider] - Prescriptions: Nitroglycerin 0.4 mg SL Q5MIN PRN #30 tab.subl PRN Reason: Chest Pain Aspirin 81 mg PO DAILY #30 tab.chew Atorvastatin [Lipitor] 80 mg PO HS #60 tablet Metoprolol [Lopressor] 12.5 mg PO BID #60 tablet
[2018-04-21] MEDS ORDERED: *HR* Ticagrelor 90 MG TABLET PO SCH (09:00)
[2018-04-21] MEDS: Aspirin 81 MG TAB.CHEW PO SCH (09:05)
--- NOTE | 2018-04-21 15:59 | Electrocardiograph Report ---
[place] [id number] Test Date: 2018-04-19 Pat Name: Rob Lange Department: 104 Room: 3B Gender: M [employer]: : [id number] Requested By: Amos Ireland Order Number: [id number] Reading MD: Leana Liriano Measurements Intervals [place] Rate: 79 P: 28 MS: 166 QRS: 16 QRSD: 84 T: 21 QT: 353 QTc: 387 Interpretive Statements SINUS RHYTHM ST elev probable normal early repol pattern Electronically Signed On 04-21-2018 15:57:42 EDT by Leana Liriano
== END 2018-04-21 09:30 | disposition home or self-care (01) | DRG 247 ==
LOC: EMEROOARM 21:35 → 3BNU 21:35
PROVIDERS: ADMIT Pediatrics; ATTEND Pediatrics